=== PATIENT | male | born 1940 | race Caucasian/White ===

== ENCOUNTER 2019-02-06 07:52 | Inpatient (IN) ==
--- NOTE | 2019-02-06 08:12 | Emergency Department Note ---
Disposition Clinical Impression: Lower gastrointestinal hemorrhage, Hematochezia Anemia Qualifiers: Anemia type: unspecified type Qualified Code(s): D64.9 - Anemia, unspecified Disposition: Admitted As Inpatient Condition: Undetermined Forms: ED Satisfaction Letter Time of Disposition: 09:20 GI Bleed HPI - General Chief complaint: ED GI Bleed Stated complaint: Blood in stool Time Seen by Provider: 02/06/19 07:58 Source: patient, EMS Mode of arrival: EMS Limitations: no limitations Nursing Notes Reviewed: Yes Vital Signs Reviewed: Yes - History of Present Illness HPI Narrative: 78-year-old male with history of GI bleeding over the course the past 3 weeks arrives to the emergency department with concern from nursing staff for GI bleed. The patient is been seen multiple times in multiple emergency departments for GI bleeding and had a colonoscopy roughly 7 days ago which dem onstrated diverticulosis with no other etiology for the GI bleed. The patient is in no acute distress and denies any other complaints at this time. The patient was apparently sent here by nursing staff rather than physician for evaluation. I spoke to Dr. arriaga who is a physician chyron operator who stated that in less the patient was hypotensive the patient was not supposed to be sent to the emergency department unless requested. The patient denies any requesting denies any complaints at this time. We will obtain screening labs to include hemoglobin and platelets to determine if the patient is anemic and a BMP to determine if the patient has any acute kidney injury. Pelvis is negative, the patient will be sent back to nursing facility in conjunction with conversation with on-call physician from nursing facility. No further questions or concerns noted this time. Patient denies any complaints. He is in no acute distress. In route to the hospital patient given strict no tachycardia or hypotension. Same thing as reflected vital signs here at [facility] [place] emergency department. No further questions or concerns noted this time. - Related Data Allergies Allergy/AdvReac Type Severity Reaction Status Date / Time tramadol AdvReac Difficulty Verified 02/06/19 07:57 Breathing All systems ED: reviewed and negative except as stated. Constitutional: Denies: fever, chills, weakness Cardiovascular: Denies: chest pain Respiratory: Denies: dyspnea Gastrointestinal: Reports: hematochezia. Denies: abdominal pain, nausea, vomiting, diarrhea, constipation, hematemesis, melena Genitourinary: Denies: urgency, dysuria Musculoskeletal: Denies: back pain Integumentary: Denies: rash Neurological: Denies: headache, confusion Past Medical History - Past Medical History Attestation: Yes The following information was validated with the patient. Source: patient, old records reviewed Medical history: Reports: arthritis, GERD, hyperlipidemia, hypertension, other Surgical history: Reports: non-contributory Psychiatric history: Reports: no psych history - Social History Smoking Status: Never smoker Smokeless Tobacco Status: No Alcohol use: Reports: none Drug use: Reports: none Physical Exam - General Limitations: no limitations General appearance: alert, in no apparent distress - Head Head exam: atraumatic, normocephalic, normal inspection - Eye Eye exam: Present: normal appearance, PERRL, EOMI - ENT ENT exam: normal exam, normal oropharynx, mucous membranes moist - Neck Neck exam: Present: normal inspection, full ROM, trachea midline - Chest Chest inspection: Present: normal inspection, symmetric chest wall rise - Respiratory Respiratory exam: Present: normal lung sounds bilaterally - Cardiovascular Cardiovascular exam: Present: regular rate, normal rhythm, normal heart sounds - Abdominal Exam Abdominal exam: Present: soft, Non-Tender. Absent: tenderness - Extremities Exam Extremities exam: Present: normal inspection, full ROM. Absent: tenderness, pedal edema - Neurological Exam Neurological exam: Present: alert, oriented X3, CN II-XII intact - Skin Skin exam: Present: warm, dry, intact, normal color Course Vital Signs Temperature 98.3 F 02/06/19 07:55 Pulse Rate 72 02/06/19 07:55 Respiratory Rate 16 02/06/19 07:55 Blood Pressure 115/70 02/06/19 07:55 O2 Sat by Pulse Oximetry 100 02/06/19 07:55 Temperature 98.3 F 02/06/19 07:55 Pulse Rate 79 02/06/19 09:18 Respiratory Rate 16 02/06/19 09:18 Blood Pressure 87/56 02/06/19 09:18 O2 Sat by Pulse Oximetry 100 02/06/19 09:18 Oxygen Delivery Oxygen Delivery Room Air GI Bleed - [facility] Narrative Medical decision making narrative: Patient's evaluation in the emergency department demonstrates findings consistent with a GI bleed with anemia. Hemoglobin 6.2. Type and screen were obtained and we will transfuse 2 units of blood. Patient will be admitted to the hospital for further workup and care. We will have a discussion with on- call endoscopy. The patient is in no acute distress was stable vital signs. Patient's on-call physician from nursing facility made aware. Patient made aware and agrees to plan. Accepted to the hospitalist by Dr. Guillen - Lab Data Lab results reviewed: Yes I reviewed the patient's lab results. Result diagrams: 02/06/19 08:12 02/06/19 08:12 Lab Results 02/06/19 02/06/19 Range/Units 08:12 08:12 Hgb 6.2 L (12.9-16.9) g/dL Hct 21.0 L (37.5-50.1) % Plt Count 232 (140-400) K/mcL Sodium 139 (136-145) mEq/L Potassium 4.5 (3.5-5.1) mEq/L Chloride 109 H (98-107) mEq/L Carbon Dioxide 21 L (23-29) mEq/L BUN 13 (8-23) mg/dL Creatinine 0.79 (0.70-1.30) mg/dL Est GFR ( Amer) > 60 (> 60) Est GFR (Non-Af Amer) > 60 (> 60) BUN/Creatinine Ratio 16 (6-26) Glucose 86 (70-105) mg/dL Calculated Osmolality 287 (280-300) Calcium 8.3 L (8.6-10.3) mg/dL
[2019-02-06 08:23] LABS: Hemoglobin 6.2 g/dL (12.9-16.9)
[2019-02-06 08:43] LABS: BUN/Creatinine Ratio 16 (6-26); Blood Urea Nitrogen 13 mg/dL (8-23); Calcium 8.3 mg/dL (8.6-10.3); Carbon Dioxide 21 mEq/L (23-29); Chloride 109 mEq/L (98-107); Glucose 86 mg/dL (70-105); Osmolality,Calculated 287 (280-300); Potassium 4.5 mEq/L (3.5-5.1); Sodium 139 mEq/L (136-145); eGFR For Non-African Americans > 60 (> 60)
[2019-02-06] MEDS ORDERED: 0.9 % Sodium Chloride 1,000 ML IVC ONE (09:18)
--- NOTE | 2019-02-06 09:53 | Emergency Department Note ---
Disposition Clinical Impression: Lower gastrointestinal hemorrhage, Hematochezia Anemia Qualifiers: Anemia type: unspecified type Qualified Code(s): D64.9 - Anemia, unspecified Disposition: Admitted As Inpatient Condition: Undetermined Referrals: Ludy Colmenares DO [Primary Care Provider] - Forms: ED Satisfaction Letter General Adult HPI - General Chief complaint: ED GI Bleed Stated complaint: Blood in stool Time Seen by Provider: 02/06/19 07:58 Source: patient, EMS Mode of arrival: EMS Limitations: no limitations - History of Present Illness Pain Scale: 0 - Related Data Allergies Allergy/AdvReac Type Severity Reaction Status Date / Time tramadol AdvReac Difficulty Verified 02/06/19 07:57 Breathing Constitutional: Denies: fever, chills, weakness Cardiovascular: Denies: chest pain Respiratory: Denies: dyspnea Gastrointestinal: Reports: hematochezia. Denies: abdominal pain, nausea, vomiting, diarrhea, constipation, hematemesis, melena Genitourinary: Denies: urgency, dysuria Musculoskeletal: Denies: back pain Integumentary: Denies: rash Neurological: Denies: headache, confusion Past Medical History - Past Medical History Medical history: Reports: arthritis, GERD, hyperlipidemia, hypertension, other Surgical history: Reports: non-contributory Psychiatric history: Reports: no psych history - Social History Smoking Status: Never smoker Smokeless Tobacco Status: No Alcohol use: Reports: none Drug use: Reports: none Physical Exam - General Limitations: no limitations General appearance: alert, in no apparent distress Course Vital Signs Temperature 98.3 F 02/06/19 07:55 Pulse Rate 72 02/06/19 07:55 Respiratory Rate 16 02/06/19 07:55 Blood Pressure 115/70 02/06/19 07:55 O2 Sat by Pulse Oximetry 100 02/06/19 07:55 Temperature 98.3 F 02/06/19 07:55 Pulse Rate 75 02/06/19 09:44 Respiratory Rate 20 02/06/19 09:44 Blood Pressure 78/41 02/06/19 09:44 O2 Sat by Pulse Oximetry 100 02/06/19 09:44 Oxygen Delivery Oxygen Delivery Room Air Medical Decision Making - Lab Data Result diagrams: 02/06/19 08:12 02/06/19 08:12 Lab Results 03/21/19 03/21/19 03/21/19 Range/Units 08:12 08:12 08:44 Hgb 6.2 L (12.9-16.9) g/dL Hct 21.0 L (37.5-50.1) % Plt Count 232 (140-400) K/mcL Sodium 139 (136-145) mEq/L Potassium 4.5 (3.5-5.1) mEq/L Chloride 109 H (98-107) mEq/L Carbon Dioxide 21 L (23-29) mEq/L BUN 13 (8-23) mg/dL Creatinine 0.79 (0.70-1.30) mg/dL Est GFR ( Amer) > 60 (> 60) Est GFR (Non-Af Amer) > 60 (> 60) BUN/Creatinine Ratio 16 (6-26) Glucose 86 (70-105) mg/dL Calculated Osmolality 287 (280-300) Calcium 8.3 L (8.6-10.3) mg/dL Blood Type O POSITIVE Attestation Statement - Attestation Attestation: I examined this patient and my medical decision-making was reviewed with the Resident Physician. I agree with the documented findings, disposition and treatment plan as described except to the extent set forth below. BP went from normal to low while in ED, but he has had no change in how he feels, no change in mentation. Fluids running, blood about to be started. Updating hospitalist, will make sure GI is aware.
[2019-02-06] MEDS ORDERED: 0.9 % Sodium Chloride 250 ML ONE (09:59)
--- NOTE | 2019-02-06 11:51 | Pulmonology History & Physical ---
<Patricia Carney M - Last Filed: 02/06/19 16:14> Date of Encounter: 02/06/19 History of Present Illness HPI: Mr. Jauregui is a 78 year old male Medications and Allergies Acetaminophen [Tylenol] 650 mg PO BID 02/06/19 [History] Acetaminophen w/Cod 300-30 mg [Tylenol w/Codeine #3] 1 each PO Q6H PRN 02/06/19 [History] Ascorbate Calcium [Vitamin C] 500 mg PO DAILY 02/06/19 [History] Aspirin [Lo-Dose Aspirin EC] 81 mg PO DAILY 02/06/19 [History] Bisacodyl [Dulcolax] 5 mg PO DAILY PRN 02/06/19 [History] Carbidopa/Levodopa 25/100 [Sinemet 25/100] 2 each PO 5XD 02/06/19 [History] Chlorhexidine Gluconate [Peridex] 15 ml MM BID 02/06/19 [History] Docusate [Colace] 200 mg PO DAILY 02/06/19 [History] Ferrous Sulfate [Iron] 325 mg PO DAILY 02/06/19 [History] Gabapentin [Neurontin] 100 mg PO BID 02/06/19 [History] Loratadine [Claritin] 10 mg PO DAILY PRN 02/06/19 [History] Menthol [Biofreeze] 1 appl TP Q8H PRN 02/06/19 [History] Nystatin POWDER [Nystop] 1 appl TP BID 02/06/19 [History] Ondansetron HCl [Zofran] 4 mg PO Q6H PRN 02/06/19 [History] Pantoprazole Sodium [Protonix] 40 mg PO DAILY 02/06/19 [History] Polyethylene Glycol 3350 [MiraLAX] 17 gm PO HS 02/06/19 [History] Vitamin B Complex [Balanced B-50] 1 each PO DAILY 02/06/19 [History] Allergy/AdvReac Type Severity Reaction Status Date / Time tramadol AdvReac Difficulty Verified 02/06/19 07:57 Breathing All Systems: The remainder of the systems were reviewed and are negative Physical Examination Vital Signs: Vital Signs, Last 4 Hours Temp Pulse Resp BP Pulse Ox 02/06/19 16:00 67 13 127/64 99 02/06/19 15:54 98.2 F 73 16 144/65 99 03/21/19 15:00 98.2 F 82 20 144/65 95 02/06/19 14:14 69 11 122/70 99 02/06/19 13:16 76 12 107/60 100 02/06/19 13:15 98.3 F 66 15 107/60 100 02/06/19 13:00 98.2 F 69 14 93/60 100 02/06/19 12:42 73 14 90/59 100 Results - Laboratory Findings CBC and BMP: 02/06/19 08:12 02/06/19 08:12 Abnormal lab findings: Abnormal lab results Hgb 6.2 g/dL (12.9-16.9) L 02/06/19 08:12 Hct 21.0 % (37.5-50.1) L 02/06/19 08:12 Chloride 109 mEq/L (98-107) H 02/06/19 08:12 Carbon Dioxide 21 mEq/L (23-29) L 02/06/19 08:12 Calcium 8.3 mg/dL (8.6-10.3) L 02/06/19 08:12 - Attending Attestation I examined this patient and my medical decision-making was reviewed with the Resident Physician. I agree with the documented findings, disposition and treatment plan as described except to the extent set forth below. Patient seen and examined. I was called by the emergency room physician to evaluate this patient and patient was seen and examined in the emergency room as well as in the ICU. Labs, radiology, chart personally reviewed. Agree with resident's history and physical, assessment, plan with following co mments: CHARACTER ARTIST: Patient follows commands, Pulmonary: Acceptable oxygenation and ventilation Cardiovascular: Relatively hypotensive, however he is alert and oriented and is no evidence of any poor perfusion. I feel with blood transfusion this is will get better. GI: Nutrition per dietary and GI prophylaxis per routine. Patient was recently treated for the same problem and he will be on PPI and he may need octreotide as well. Patient stated colonoscopy was done in [place] and they were not able to reach to the area of bleeding. Elevator Pilot has been consulted. Patient will be admitted to ICU for close monitoring and frequent checking: His H&H. Because of his age and colon cancer would be in the differential diagnosis will need to have CT abdomen and pelvis. Heme: DVT prophylaxis per routine ID: There is no evidence of infections. Renal; urine out put and renal funtion reviewed Endorcine: blood glucose is monitored Lines: all lines checked and no evidence of infections Skin: skin care to prevent pressure ulcers per nursing routine care <Brandy Blancas - Last Filed: 02/06/19 16:51> Date of Encounter: 02/06/19 Time of Encounter: 11:48 Assessment and Plan (1) Lower gastrointestinal hemorrhage Current visit: Yes Status: Acute * Had large volume hematochezia in the emergency room * Has gotten 2 units packed red blood cells for anemia with hemoglobin of 6.2, will recheck CBC approximately 2 hours following transfusion to determine response * Dr. Anderson, nursery worker to evaluate the patient, plans to perform colonoscopy this afternoon if available * Will obtain records given that the patient has had recent colonoscopy * CT abdomen shows distended rectum but no evidence of obvious mass, bowel ischemia or obstruction * NPO for planned procedure, can advance diet as tolerated following procedure * [id number], patient's PoA will bring papers for verification (2) Anemia Current visit: Yes Status: Acute * On presentation hemoglobin 6.2 * Will obtain records from prior hospitalizations to determine baseline * Repeat H&H this afternoon Qualifiers: Anemia type: other cause Other causes of anemia: acute posthemorrhagic Qualified Code(s): D62 - Acute posthemorrhagic anemia (3) Parkinsons disease Current visit: Yes Status: Chronic * Baseline tremor * Will request records from home nursing facility to determine patient's medications (4) Hypertension Current visit: Yes Status: Chronic * Home medications pending given the patient's acute blood loss and borderline hypotension Qualifiers: Hypertension type: essential hypertension Qualified Code(s): I10 - Essen tial (primary) hypertension History of Present Illness Chief complaint: Hematochezia HPI: Mr. Jauregui is a 78 year old male with history of Parkinson's, hypertension who presents the emergency department on 02/06/19 due to hematochezia. He has been dealing with GI bleed for approximately 2 weeks and has been seen at both [facility] and [place] for this problem. He states that he underwent colonoscopy at [place] approximately one week ago but even after discharge he had a small amount of blood from his rectum. Today he was being checked by the nurses at his nursing facility and was found to have large volume bright red bloody bowel movement. He denies any current dizziness, lightheadedness, chest pain, shortness of breath, visual changes, nausea, vomiting, hematemesis, hemoptysis, hematuria, abdominal pain but does note increased fatigue and weakness in his legs. He is typically able to perform his own activities of daily living but since his bleeding started he has required more assistance at home. While in the emergency department the patient also had an episode of large- volume hematochezia. The patient was an initially normotensive but he came intermittently hypotensive with a lowest reading recorded at 78/41. He received 1 L fluid bolus as well as 2 unit packed red blood cells, the first of which is currently infusing upon my evaluation. Past Med Surg Social Fam HX - Past Medical History Medical history: arthritis, GERD, hyperlipidemia, hypertension, other Additional medical history: diverticulosis, parkinson's, aflutter, Psychiatric history: no psych history - Past Surgical History Surgical History: non-contributory Additional surgical history: bicept tendon R arm, eye sx - Social History Smoking Status: Never smoker Smokeless Tobacco Status: No Alcohol use: none Drug use: none All Systems: The remainder of the systems were reviewed and are negative - Constitutional Constitutional: as per HPI, fatigue - EENT Eyes: as per HPI - Cardiovascular Cardiovascular: as per HPI, no chest pain, no edema - Respiratory Respiratory: as per HPI, no dyspnea, no hemoptysis - Gastrointestinal Gastrointestinal: as per HPI, hematochezia, no abdominal pain, no cramping, no nausea - Genitourinary Genitourinary: as per HPI, no dysuria, no hematuria - Musculoskeletal Musculoskeletal: weakness - Integumentary Integumentary: no rash - Neurological Neurological: as per HPI, abnormal movements (Long-standing, due to Parkinson's) - Endocrine Endocrine: fatigue Physical Examination Vital Signs: Vital Signs, Last 4 Hours Temp Pulse Resp BP Pulse Ox 02/06/19 11:34 69 16 120/63 100 02/06/19 11:10 69 12 98/58 100 02/06/19 10:23 97.5 F L 64 14 93/47 02/06/19 10:20 65 14 106/59 100 02/06/19 10:09 97.6 F 68 12 102/58 02/06/19 09:44 75 20 78/41 100 02/06/19 09:18 79 16 87/56 100 02/06/19 07:55 98.3 F 72 16 115/70 100 General appearance: no acute distress, alert Eyes: nonicteric ENT: oropharynx moist, other (pallor) Neck: supple Effort: normal Inspection: normal Auscultation: bilateral: clear Cardiovascular: regular rate and rhythm Gastrointestinal: normoactive bowel sounds, non-tender, non-distended Integumentary: other (Bruising to bilateral hands, overall pallorous) Extremities: no cyanosis, pink and warm, pulses normal, no ischemia or petechiae Musculoskeletal: no deformities normal mental status, non-focal exam, pupils equal and round mood appropriate, affect normal Results - Laboratory Findings CBC and BMP: 02/06/19 08:12 02/06/19 08:12 Abnormal lab findings: Abnormal lab results Hgb 6.2 g/dL (12.9-16.9) L 02/06/19 08:12 Hct 21.0 % (37.5-50.1) L 02/06/19 08:12 Chloride 109 mEq/L (98-107) H 02/06/19 08:12 Carbon Dioxide 21 mEq/L (23-29) L 02/06/19 08:12 Calcium 8.3 mg/dL (8.6-10.3) L 02/06/19 08:12
[2019-02-06] MEDS ORDERED: Naloxone 0.4 MG/ML INJ IVP PRN (12:06)
[2019-02-06] MEDS ORDERED: Isovue-370 500 ML BOTTLE IVP ONE (14:07)
[2019-02-06] MEDS ORDERED: *HR* Midazolam HCl 2 MG/2 ML VIAL ONE ×2 (17:17→17:25)
[2019-02-06] MEDS ORDERED: *HR* FentaNYL (PF) 100 MCG/2 ML VIAL ONE (17:17)
[2019-02-06] MEDS ORDERED: *HR* FentaNYL (PF) 100 MCG/2 ML VIAL IVP ONE (17:18)
[2019-02-06] MEDS ORDERED: *HR* Midazolam HCl 5 MG/5 ML VIAL IVP ONE (17:18)
[2019-02-06] MEDS ORDERED: Tetracaine/Benzocaine/Butamben 1 SPRAY AEROSOL MM ONE (17:18)
[2019-02-06 17:31] LABS: Basophils % 0.6 %; Eosinophils # 0.1 K/mcL (0.0-0.6); Eosinophils % 1.6 %; Hematocrit 25.4 % (37.5-50.1); Immature Granulocytes % 0.5 % (0-4); Lymphocytes # 1.5 K/mcL (0.6-4.6); Lymphocytes % 23.9 %; Mean Corpuscular HGB Conc 31.1 g/dL (31.6-35.5); Mean Corpuscular Hemoglobin 27.1 pg (28.0-33.3); Mean Corpuscular Volume 87.3 fL (83.0-100.0); Mean Platelet Volume 10.6 fL (9.4-12.4); Monocytes # 0.7 K/mcL (0.0-1.3); Monocytes % 10.1 %; Neutrophils # 4.1 K/mcL (1.6-8.9); Platelet Count 235 K/mcL (140-400); Red Blood Count 2.91 M/mcL (4.19-5.50); Red Cell Distribution Width 17.2 % (11.5-14.5); Segmented Neutrophils % 63.3 %
[2019-02-06 17:37] LABS: Hemoglobin 7.9 g/dL (12.9-16.9)
[2019-02-06] MEDS: Pantoprazole 40 MG VIAL IVP SCH (17:39)
[2019-02-06 22:11] LABS: Basophils % 0.6 %; Eosinophils # 0.1 K/mcL (0.0-0.6); Eosinophils % 0.9 %; Hematocrit 23.2 % (37.5-50.1); Hemoglobin 7.5 g/dL (12.9-16.9); Immature Granulocytes % 0.4 % (0-4); Lymphocytes # 1.6 K/mcL (0.6-4.6); Lymphocytes % 22.7 %; Mean Corpuscular HGB Conc 32.3 g/dL (31.6-35.5); Mean Corpuscular Hemoglobin 28.2 pg (28.0-33.3); Mean Corpuscular Volume 87.2 fL (83.0-100.0); Mean Platelet Volume 10.6 fL (9.4-12.4); Monocytes # 0.6 K/mcL (0.0-1.3); Monocytes % 9.1 %; Neutrophils # 4.6 K/mcL (1.6-8.9); Platelet Count 248 K/mcL (140-400); Red Blood Count 2.66 M/mcL (4.19-5.50); Red Cell Distribution Width 17.3 % (11.5-14.5); Segmented Neutrophils % 66.3 %
[2019-02-07] MEDS: Pantoprazole 40 MG VIAL IVP SCH ×2 (06:10→17:41)
--- NOTE | 2019-02-07 07:32 | Pulmonology Progress Note ---
<Patricia Carney - Last Filed: 02/07/19 15:30> Date of Encounter: 02/07/19 Objective PUL Vital signs: Last Vital Signs Temp 98.0 F 02/07/19 07:50 Pulse 70 02/07/19 09:00 Resp 18 02/07/19 09:00 BP 140/95 02/07/19 09:00 Pulse Ox 98 02/07/19 09:00 Results - Laboratory Findings CBC and BMP: 02/07/19 09:26 02/06/19 08:12 Abnormal lab findings: Abnormal lab results RBC 2.71 M/mcL (4.19-5.50) L 02/07/19 09:26 Hgb 7.3 g/dL (12.9-16.9) L 02/07/19 09:26 Hct 23.4 % (37.5-50.1) L 02/07/19 09:26 MCH 26.9 pg (28.0-33.3) L 02/07/19 09:26 MCHC 31.2 g/dL (31.6-35.5) L 02/07/19 09:26 RDW 17.4 % (11.5-14.5) H 02/07/19 09:26 Chloride 109 mEq/L (98-107) H 02/06/19 08:12 Carbon Dioxide 21 mEq/L (23-29) L 02/06/19 08:12 Calcium 8.3 mg/dL (8.6-10.3) L 02/06/19 08:12 - Clinical Findings Intake & Output: Intake & Output 02/06/19 02/07/19 02/07/19 23:59 07:59 15:59 Intake Total 250 / 250 Output Total 100 / 100 150 / 150 Balance 150 / 150 -150 / -150 Weight 89.8 kg Consult Discharge Plan - Plan Referrals: Ludy Colmenares DO [Primary Care Provider] - - Attending Attestation I examined this patient and my medical decision-making was reviewed with the Resident Physician. I agree with the documented findings, disposition and treatment plan as described except to the extent set forth below. Patient seen and examined. Labs, radiology, chart personally reviewed. 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 GI: Nutrition per dietary and GI prophylaxis per routine. Patient will have evaluation by GI for the source of the bleeding. Discussed with the GI service. Heme: DVT prophylaxis per routine patient hemoglobin is relatively stable and no need for transfusion at this time ID: Continue antibiotics and plan to de-escalation Renal; urine out put and renal funtion reviewed Endorcine: blood glucose is monitored Lines: all lines checked and no evidence of infections Skin: skin care to prevent pressure ulcers per nursing routine care Patient will be signed off to the hospitalist. <Toby Chang P - Last Filed: 02/07/19 19:02> Date of Encounter: 02/07/19 Time of Encounter: 10:00 Assessment and Plan (1) Lower gastrointestinal hemorrhage Current Visit: Yes Status: Acute The patient was presented for last bloody bowel movement, he also had blood any stool in emergency room Diagnostic Cardiac Sonographer evaluated him and plan for UGI endoscopy and colonoscopy UGI endoscopy showed; small non-bleeding gastric ulcer in the pre- pyloric region of stomach Colonoscopy has been awaited, has been planned today He got 2 units of packed red blood cell and initial hemoglobin 6.[address] abdomen did not show any obvious acute pathology including bowel ischemia or obstruction (2) Acute blood loss anemia Current Visit: Yes Status: Acute Patient hemoglobin is 6.2 while he presented to ED After pus was in of 2 unit of packed cell and only went up to 7.5, now it is 7.2 Anemia might be because of acute blood loss Colonoscopy has been planned today to figure out any he did not begin point. We will closely monitor his hemoglobin level. (3) Parkinsons disease Current Visit: Yes Status: Chronic He is a patient of Parkinson disease Has resting tremor We will confirm his antiparkinson medication from nursing facility and will resume them. (4) Hypertension Current Visit: Yes Status: Chronic Patient is chronic patient of essential hypertension under medication Anti HTN medication is on hold the cause of acute blood loss and hypotension We will resume later Qualifiers: Hypertension type: essential hypertension Qualified Code(s): I10 - Essential (primary) hypertension (5) Mechanical deep vein thrombosis (DVT) prophylaxis in place Current Visit: Yes Status: Acute Because of bleeding, he is on mechanical DVT prophylaxis. Subjective Principal diagnosis: GI bleeding , Low Hb Interval history: Mr. Jauregui is a 78 year old male with history of Parkinson's, hypertension who presents the emergency department on 02/06/19 due to hematochezia. He has been dealing with GI bleed for approximately 2 weeks and has been seen at both [facility] and [facility] for this problem. He states that he underwent colonoscopy at [facility] approximately one week ago but even after discharge he had a small amount of blood from his rectum. he was being checked by the nurses at his [facility] facility and was found to have large volume bright red bloody bowel movement. So he was transferred to [place] emergency and admitted to ICU because he was hemodynamically stable on stable. Today during my bedside visit the patient was sitting on the bed, well oriented to time place and person, no any history of bloody bowel movement since yesterday, vital signs stable, blood pressure 146/65, saturation 98% in room air, pulse 70, temperature 98 F. his hemoglobin was 6.2 at the beginning and a fter blood transfusion Hb went up now it is 7.3. The patient is comfortable and stable, just waiting for colonoscopy today. UGI endoscopy done yesterday showed small pre-pyloric nonbleeding gastric ulcer. I talked with hospitalist/ admitter and he will be transferred to stepdown unit and a half already put transfer order for any Tele bed. Objective PUL Vital signs: Last Vital Signs Temp 98.4 F 02/07/19 04:00 Pulse 70 02/07/19 06:00 Resp 18 02/07/19 06:00 BP 158/84 02/07/19 06:00 Pulse Ox 98 02/07/19 06:00 General appearance: no acute distress Eyes: nonicteric ENT: oropharynx moist Neck: supple, no lymphadenopathy Effort: normal Cardiovascular: regular rate and rhythm Gastrointestinal: normoactive bowel sounds, soft, non-tender, non-distended Extremities: no edema Musculoskeletal: no deformities normal mental status, non-focal exam, pupils equal and round, CN II-XII normal mood appropriate, affect normal Results - Laboratory Findings CBC and BMP: 02/07/19 09:26 02/06/19 08:12 Abnormal lab findings: Abnormal lab results RBC 2.66 M/mcL (4.19-5.50) L 02/06/19 22:00 Hgb 7.5 g/dL (12.9-16.9) L 02/06/19 22:00 Hct 23.2 % (37.5-50.1) L 02/06/19 22:00 RDW 17.3 % (11.5-14.5) H 02/06/19 22:00 Chloride 109 mEq/L (98-107) H 02/06/19 08:12 Carbon Dioxide 21 mEq/L (23-29) L 02/06/19 08:12 Calcium 8.3 mg/dL (8.6-10.3) L 02/06/19 08:12 - Clinical Findings Intake & Output: Intake & Output 02/06/19 02/06/19 02/07/19 15:59 23:59 07:59 Intake Total 1700 / 1700 250 / 250 Output Total 100 / 100 100 / 100 150 / 150 Balance 1600 / 1600 150 / 150 -150 / -150 Weight 90 kg 89.8 kg
--- NOTE | 2019-02-07 09:06 | Anesthesia Evaluation PreOp ---
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) Other Medical History: GERD, Other (GI bleed, arthritis) Anesthesia History: No Prior Anesthetic Complications, Past Anesthesia Alcohol Use: none Drug use: none Medications and Allergies Acetaminophen [Tylenol] 650 mg PO BID 02/06/19 [History] Acetaminophen w/Cod 300-30 mg [Tylenol w/Codeine #3] 1 each PO Q6H PRN 02/06/19 [History] Ascorbate Calcium [Vitamin C] 500 mg PO DAILY 02/06/19 [History] Aspirin [Lo-Dose Aspirin EC] 81 mg PO DAILY 02/06/19 [History] Bisacodyl [Dulcolax] 5 mg PO DAILY PRN 02/06/19 [History] Carbidopa/Levodopa 25/100 [Sinemet 25/100] 2 each PO 5XD 02/06/19 [History] Chlorhexidine Gluconate [Peridex] 15 ml MM BID 02/06/19 [History] Docusate [Colace] 200 mg PO DAILY 02/06/19 [History] Ferrous Sulfate [Iron] 325 mg PO DAILY 02/06/19 [History] Gabapentin [Neurontin] 100 mg PO BID 02/06/19 [History] Loratadine [Claritin] 10 mg PO DAILY PRN 02/06/19 [History] Menthol [Biofreeze] 1 appl TP Q8H PRN 02/06/19 [History] Nystatin POWDER [Nystop] 1 appl TP BID 02/06/19 [History] Ondansetron HCl [Zofran] 4 mg PO Q6H PRN 02/06/19 [History] Pantoprazole Sodium [Protonix] 40 mg PO DAILY 02/06/19 [History] Polyethylene Glycol 3350 [MiraLAX] 17 gm PO HS 02/06/19 [History] Vitamin B Complex [Balanced B-50] 1 each PO DAILY 02/06/19 [History] Allergy/AdvReac Type Severity Reaction Status Date / Time tramadol AdvReac Difficulty Verified 02/06/19 07:57 Breathing - Meds/Allergy Pre-op Review Medications Reviewed: Yes Allergies Reviewed: Yes Beta Blockers on Current Med List: No Anesthesia Results - Labs 02/06/19 22:00 02/06/19 08:12 - Imaging EKG: pending Anesthesia Exam Vital Signs/O2 Sat/Glucose, Most Recent Temp Pulse Resp BP Pulse Ox 98.0 F 70 18 140/95 98 02/07/19 07:50 02/07/19 09:00 02/07/19 09:00 02/07/19 09:00 02/07/19 09:00 Blood Glucose* 89 Weight: 89 kg NPO (# of Hours): > 8 hr - HEENT Pupil (Motor): Pupils equal Mallampati: II Teeth: Edentulous - 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
[2019-02-07 09:37] LABS: Basophils % 0.5 %; Eosinophils # 0.1 K/mcL (0.0-0.6); Eosinophils % 1.3 %; Hematocrit 23.4 % (37.5-50.1); Hemoglobin 7.3 g/dL (12.9-16.9); Immature Granulocytes % 0.3 % (0-4); Lymphocytes # 1.3 K/mcL (0.6-4.6); Lymphocytes % 21.2 %; Mean Corpuscular HGB Conc 31.2 g/dL (31.6-35.5); Mean Corpuscular Hemoglobin 26.9 pg (28.0-33.3); Mean Corpuscular Volume 86.3 fL (83.0-100.0); Mean Platelet Volume 10.6 fL (9.4-12.4); Monocytes # 0.6 K/mcL (0.0-1.3); Monocytes % 8.7 %; Neutrophils # 4.3 K/mcL (1.6-8.9); Platelet Count 256 K/mcL (140-400); Red Blood Count 2.71 M/mcL (4.19-5.50); Red Cell Distribution Width 17.4 % (11.5-14.5)
--- NOTE | 2019-02-07 11:51 | Gastroenterology Consult Note ---
<Heath Molina - Last Filed: 02/07/19 11:47> Date of Encounter: 02/07/19 Time of Encounter: 10:00 - Assessment and plan (1) Anemia Current Visit: Yes Status: Acute Assessment and plan: Hgb 6.2 on admission, after 2 units PRBC Hgb 7.9, and this AM Hgb 7.3. Continue to monitor CBC and transfuse PRBC as needed. EGD completed yesterday by Dr. Anderson showed small hiatal hernia, nonbleeding gastric ulcer, gastric mucosal atrophy. Plan for colonoscopy today, keep patient NPO. Qualifiers: Anemia type: other cause Other causes of anemia: acute posthemorrhagic Qualified Code(s): D62 - Acute posthemorrhagic anemia (2) Lower gastrointestinal hemorrhage Current Visit: Yes Status: Acute Assessment and plan: EGD completed yesterday by Dr. Anderson showed small hiatal hernia, nonbleeding gastric ulcer, gastric mucosal atrophy. Plan for colonoscopy today, keep patient NPO. (3) Gastric ulcer Current Visit: Yes Status: Acute Assessment and plan: Noted on EGD. Start Carafate and continue PPI. Qualifiers: Gastric ulcer chronicity: unspecified ulcer chronicity Gastric ulcer complication status: without hemorrhage or perforation Qualified Code(s): K25.9 - Gastric ulcer, unspecified as acute or chronic, without hemorrhage or perforation - Time Spent With Patient Total time spent is greater than 50% in coordination of care (as documented) at patient's floor/unit and/or counseling patient: GI History of Present Illness - Data of Consult Patient: new to practice Consult date: 02/07/19 Requesting Physician: Patricia Carney MD - Consult Narrative Reason for consult: Acute GI bleed History of present illness: Mr. Jauregui is a 78 year old male with PMHx of arthritis, GERD, HLD, HTN, Parkinson's who presented to the ED 02/06 with hematochezia that has been ongoing for the past 2 weeks. He has been seen at [facility] for this problem. He states that he underwent colonoscopy at [facility] approximately one week ago but even after discharge he had a small amount of blood from his rectum. He was being checked by the nurses at his nursing facility and was found to have large volume bright red bloody bowel movement. He had another large volume episode of hematochezia while in the ED. He became hypotensive with BP 78/41 and Hgb 6.2. After 2 units PRBC Hgb 7.9, and this AM Hgb 7.3. He denies any fever, chills, chest pain, shortness of breath, nausea, vomiting, hematemesis, abdominal pain, or melena. EGD completed yesterday by Dr. Anderson showed small hiatal hernia, nonbleeding gastric ulcer, gastric mucosal atrophy. Procedures: Colonoscopy one week ago at [facility]. NSAIDs: ASA Anticoagulation: None Past Med Surg Social Fam HX - Past Medical History Medical history: arthritis, GERD, hyperlipidemia, hypertension, other Additional medical history: diverticulosis, parkinson's, aflutter, Psychiatric history: no psych history - Past Surgical History Surgical History: non-contributory Additional surgical history: bicept tendon R arm, eye sx - Social History Smoking Status: Never smoker Smokeless Tobacco Status: No Alcohol use: none Drug use: none - Gastrointestinal Gastrointestinal: Present: as per HPI - Constitutional Constitutional: as per HPI - EENT Eyes: as per HPI Ears: Present: as per HPI Nose, mouth and throat: Present: as per HPI - Cardiovascular Cardiovascular ROS: Present: as per HPI - Respiratory Respiratory IM: Present: as per HPI - Genitourinary Genitourinary: Absent: change in color, Urinary frequency - Neurological ROS Neurological GI: Present: as per HPI - Hematologic/Lymphatic Hematologic/Lymphatic pediatric: Present: as per HPI - Musculoskeletal Musculoskeletal ROS GI: Present: as per HPI - Integumentary Integumentary GI: Present: as per HPI - Psychiatric ROS Psychiatric GI: Present: as per HPI - Endocrine Endocrine IM: Present: as per HPI - Constitutional Vitals: Temp Pulse Resp BP Pulse Ox 98.0 F 70 18 146/65 98 02/07/19 07:50 02/07/19 10:00 02/07/19 10:00 02/07/19 10:00 02/07/19 10:00 General appearance: Present: cooperative, A&O X 3, no acute distress, answers questions appropriately - Head Head exam: Present: atraumatic, normocephalic - Eye Eye exam: Present: normal appearance, sclera anicteric - ENT ENT exam: Present: mucous membranes dry - Neck Neck exam general surgery: Present: normal inspection, trachea midline - Respiratory Respiratory exam: Present: decreased breath sounds, CTAB. Absent: rales, rhonchi, wheezes - Cardiovascular Cardiovascular exam: Present: RRR, +S1, +S2 - GI/Abdominal GI/Abdominal exam: Present: normal bowel sounds, soft, no peritoneal signs. Absent: distended, firm, guarding, tenderness - Rectal Rectal exam: Present: deferred - Extremities Exam Extremities exam: Present: warm - Neurological Exam Neurological exam: Present: no focal deficits - Psychiatric Psychiatric exam: Present: normal affect, normal mood - Skin Skin exam: Present: dry, intact, normal color, warm Results - Labs CBC & Chem 7: 02/07/19 09:26 02/06/19 08:12 Labs: Last Result Calcium 8.3 mg/dL (8.6-10.3) L 02/06/19 08:12 Entire Visit Hgb 7.3 g/dL (12.9-16.9) L 02/07/19 09:26 Hct 23.4 % (37.5-50.1) L 02/07/19 09:26 - Impressions Impressions Abdomen/Pelvis CT 02/06/19 14:07 IMPRESSION: 1. Heterogeneous attenuation of a distended rectum. This is suspected to represent a mixture of fluid and stool. Higher attenuation may correlate to provided history of hematochezia. Underlying etiology is not determined. 2. The proximal colon shows air-fluid levels with no evidence of obstruction, and no mucosal abnormality appreciated. Recommend correlation with colonoscopy history. 3. The stomach and small bowel are unremarkable. 4. Small pleural effusions with associated atelectasis in the lower chest. D/ / Julito Arnett MD / Julito Arnett MD Interpreting Provider: Julito Arnett MD Consult Discharge Plan - Plan Referrals: Ludy Colmenares DO [Primary Care Provider] - <Vandana Anderson - Last Filed: 02/07/19 13:34> Date of Encounter: 02/07/19 Time of Encounter: 08:00 - Time Spent With Patient Total time spent is greater than 50% in coordination of care (as documented) at patient's floor/unit and/or counseling patient: GI History of Present Illness - Data of Consult Requesting Physician: Patricia Carney MD - Consult Narrative History of present illness: Mr. Jauregui is a 78 year old male - Constitutional Vitals: Temp Pulse Resp BP Pulse Ox 98.2 F 74 16 151/68 98 02/07/19 11:30 02/07/19 12:00 02/07/19 12:00 02/07/19 12:00 02/07/19 12:00 Results - Labs CBC & Chem 7: 02/07/19 09:26 02/06/19 08:12 Labs: Last Result Calcium 8.3 mg/dL (8.6-10.3) L 02/06/19 08:12 Entire Visit Hgb 7.3 g/dL (12.9-16.9) L 02/07/19 09:26 Hct 23.4 % (37.5-50.1) L 02/07/19 09:26 - Impressions Impressions Abdomen/Pelvis CT 02/06/19 14:07 IMPRESSION: 1. Heterogeneous attenuation of a distended rectum. This is suspected to represent a mixture of fluid and stool. Higher attenuation may correlate to provided history of hematochezia. Underlying etiology is not determined. 2. The proximal colon shows air-fluid levels with no evidence of obstruction, and no mucosal abnormality appreciated. Recommend correlation with colonoscopy history. 3. The stomach and small bowel are unremarkable. 4. Small pleural effusions with associated atelectasis in the lower chest. D/ / Julito Arnett MD / Julito Arnett MD Interpreting Provider: Julito Arnett MD - Attending Attestation I have personally performed a face to face evaluation on this patient. I have reviewed and agree with the care plan. History and Exam by me shows: Patient seen. Denies any abdominal pain examination abdomen is soft. Assessment: Patient with multiple comorbidities no with recurrent lower GI bleeding. EGD yesterday was negative for any upper GI source. Recommendation colonoscopy today. will follow H&H transfuse as needed
--- NOTE | 2019-02-07 13:17 | Anesthesia Evaluation Post Op ---
Date of Encounter: 02/07/19 Time of Encounter: 13:16 - Vital Signs Vital Signs: Vital Signs/O2 Sat/Glucose, Most Recent Temp Pulse Resp BP Pulse Ox 98.2 F 74 16 151/68 98 02/07/19 11:30 02/07/19 12:00 02/07/19 12:00 02/07/19 12:00 02/07/19 12:00 Blood Glucose* 89 - Lungs Lungs: Clear Ascult./Percussion - Airway Airway: Non-obstructed - Cardiovascular Regular Rate - Mental Status Mental Status: Alert & Oriented, Answers Appropriately - Pain Pain Scale: 0 - Hydration Hydration: NPO - Discharge Attestation: patient to remain in ICU
[2019-02-07] MEDS ORDERED: Sucralfate 1 GM TABLET PO SCH (16:30)
--- NOTE | 2019-02-07 17:15 | Electrocardiograph Report ---
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
[2019-02-08] MEDS: Pantoprazole 40 MG VIAL IVP SCH ×2 (05:18→17:32)
[2019-02-08 06:46] LABS: Basophils % 0.5 %; Eosinophils # 0.1 K/mcL (0.0-0.6); Eosinophils % 1.8 %; Hematocrit 22.8 % (37.5-50.1); Immature Granulocytes % 0.5 % (0-4); Lymphocytes # 1.1 K/mcL (0.6-4.6); Lymphocytes % 19.9 %; Mean Corpuscular HGB Conc 30.7 g/dL (31.6-35.5); Mean Corpuscular Hemoglobin 27.2 pg (28.0-33.3); Mean Corpuscular Volume 88.7 fL (83.0-100.0); Mean Platelet Volume 10.8 fL (9.4-12.4); Monocytes # 0.5 K/mcL (0.0-1.3); Monocytes % 9.3 %; Neutrophils # 3.9 K/mcL (1.6-8.9); Platelet Count 300 K/mcL (140-400); Red Blood Count 2.57 M/mcL (4.19-5.50); Red Cell Distribution Width 17.3 % (11.5-14.5)
[2019-02-08] MEDS ORDERED: Naloxone 0.4 MG/ML INJ IVP PRN (07:02)
[2019-02-08] MEDS ORDERED: *HR* Acetaminophen w/Cod 300-30 mg 1 TAB TABLET PO PRN (08:05)
[2019-02-08] MEDS ORDERED: Loratadine 10 MG TABLET PO PRN (08:05)
[2019-02-08] MEDS ORDERED: Ondansetron ODT 4 MG TAB.RAPDIS PO PRN (08:05)
[2019-02-08] MEDS: Acetaminophen 325 MG TABLET PO SCH ×2 (09:54→20:51)
[2019-02-08] MEDS: Chlorhexidine Rinse 15 ML MOUTHWASH MM SCH ×2 (09:54→20:51)
[2019-02-08] MEDS: Aspirin Enteric Coated 81 MG Tablet PO SCH (09:55)
[2019-02-08] MEDS: Gabapentin 100 MG CAPSULE PO SCH ×2 (09:55→20:51)
[2019-02-08] MEDS: Nystatin POWDER 30 GM BOTTLE TP SCH ×2 (09:56→20:51)
--- NOTE | 2019-02-08 11:20 | Internal Med Progress Note ---
Hospitalist Progress Note - Encounter Date of Encounter: 02/08/19 Time of Encounter: 09:20 - Subjective Interval History: Patient lying down in bed. Easily to awake. Denies any new complaints at this time. No new episodes of lower GI bleed. Patient started on a clear liquid diet and is tolerating it so far. - Exam Vitals: Temp Pulse Resp BP Pulse Ox 98.1 F 84 14 103/62 98 02/08/19 10:23 02/08/19 10:02/08/19 10:02/08/19 10:02/08/19 10:23 Exam: General: Patient is alert, no acute distress, oriented x 3 ENT: Mucous membranes moist Respiratory: Good respiratory effort. Normal breath sounds. No wheezing or crackles. Cardiovascular: Regular rate and rhythm. s1 and s2 normal No clicks, rubs, gallops, or murmurs. Pedal edema present Abdomen: Abdomen is soft, nontender. Bowel sounds are present Musculoskeletal: Spontaneously moving all extremities Skin: warm, dry, intact. Pallor present Neuro: Alert oriented x 3 normal cranial nerves, no focal deficits - Assessment and Plan (1) Lower gastrointestinal hemorrhage Current Visit: Yes Status: Acute Assessment and Plan: Status post-EGD and colonoscopy which showed internal hemorrhoids but no signs of active bleeding. Nonbleeding gastric ulcer also noted. Continue PPI. Start patient on clear liquid diet. (2) Parkinsons disease Current Visit: Yes Status: Chronic Assessment and Plan: Continue Sinemet (3) Hypertension Current Visit: Yes Status: Chronic Assessment and Plan: Blood pressure elevated this morning. We will continue to monitor closely. Patient not on any antihypertensives at home. Will monitor closely and start medication if needed. (4) Acute blood loss anemia Current Visit: Yes Status: Acute Assessment and Plan: Hemoglobin levels remain stable since his last transfusion. We will continue to monitor closely. Acute anemia due to GI bleed. (5) Mechanical deep vein thrombosis (DVT) prophylaxis in place Current Visit: Yes Status: Acute Assessment and Plan: Continue SCDs - Time Spent with Patient Total time spent is greater than 50% in coordination of care (as documented) at patient's floor/unit and/or counseling patient: Internal Medicine: Result - Labs CBC & Chem 7: 02/08/19 05:50 02/06/19 08:12 Labs: Short CBC 02/08/19 Range/Units 05:50 WBC 5.7 (4.3-11.1) K/mcL Hgb 7.0 L (12.9-16.9) g/dL Hct 22.8 L (37.5-50.1) % Plt Count 300 (140-400) K/mcL Neutrophils # 3.9 (1.6-8.9) K/mcL Consult Discharge Plan - Plan Referrals: Ludy Colmenares, [Primary Care Provider] - (3) Hypertension Qualifiers: Hypertension type: essential hypertension Qualified Code(s): I10 - Essential (primary) hypertension
[2019-02-08] MEDS: Carbidopa/Levodopa 25/100 TABLET PO SCH ×3 (11:55→21:47)
[2019-02-08 12:15] LABS: Hematocrit 22.8 % (37.5-50.1); Hemoglobin 7.2 g/dL (12.9-16.9)
[2019-02-08 18:15] LABS: Hemoglobin 7.3 g/dL (12.9-16.9)
[2019-02-09] MEDS: Pantoprazole 40 MG VIAL IVP SCH ×2 (05:25→17:45)
[2019-02-09] MEDS: Carbidopa/Levodopa 25/100 TABLET PO SCH ×5 (05:25→20:01)
[2019-02-09 06:43] LABS: Basophils % 0.6 %; Eosinophils # 0.2 K/mcL (0.0-0.6); Eosinophils % 4.2 %; Hematocrit 21.8 % (37.5-50.1); Hemoglobin 6.6 g/dL (12.9-16.9); Immature Granulocytes % 0.4 % (0-4); Lymphocytes # 1.3 K/mcL (0.6-4.6); Mean Corpuscular HGB Conc 30.3 g/dL (31.6-35.5); Mean Corpuscular Volume 89.3 fL (83.0-100.0); Mean Platelet Volume 10.7 fL (9.4-12.4); Monocytes # 0.6 K/mcL (0.0-1.3); Monocytes % 11.2 %; Neutrophils # 2.9 K/mcL (1.6-8.9); Platelet Count 298 K/mcL (140-400); Red Blood Count 2.44 M/mcL (4.19-5.50); Red Cell Distribution Width 17.2 % (11.5-14.5); Segmented Neutrophils % 57.6 %
[2019-02-09 07:16] LABS: BUN/Creatinine Ratio 19 (6-26); Blood Urea Nitrogen 17 mg/dL (8-23); Calcium 8.1 mg/dL (8.6-10.3); Carbon Dioxide 23 mEq/L (23-29); Chloride 109 mEq/L (98-107); Glucose 88 mg/dL (70-105); Iron < 10 mcg/dL (65-175); Osmolality,Calculated 285 (280-300); Sodium 137 mEq/L (136-145); Transferrin 129 mg/dL (203-362); eGFR For Non-African Americans > 60 (> 60)
[2019-02-09 07:25] LABS: Ferritin 15 ng/mL (20-250); Folate 7.9 ng/mL (3.0-16.0)
[2019-02-09] MEDS: Aspirin Enteric Coated 81 MG Tablet PO SCH (07:58)
[2019-02-09] MEDS: Acetaminophen 325 MG TABLET PO SCH ×2 (07:58→20:00)
[2019-02-09] MEDS: Gabapentin 100 MG CAPSULE PO SCH ×2 (07:58→20:00)
[2019-02-09] MEDS: Chlorhexidine Rinse 15 ML MOUTHWASH MM SCH ×2 (07:58→20:01)
[2019-02-09] MEDS: Nystatin POWDER 30 GM BOTTLE TP SCH ×2 (08:00→20:01)
[2019-02-09] MEDS: Cyanocobalamin (B-12) 1,000 MCG/ML VIAL SQ SCH (11:17)
[2019-02-09] MEDS ORDERED: Bisacodyl 10 MG RECTAL SUPPOSITORY RC PRN (11:47)
--- NOTE | 2019-02-09 11:49 | Internal Med Progress Note ---
Hospitalist Progress Note - Encounter Date of Encounter: 02/09/19 Time of Encounter: 09:20 - Subjective Interval History: Patient is awake and alert. Lying down in bed. Reports that he is not had a bowel movement for the past couple of days.. He is tolerating diet well. No fevers or chills reported overnight. No hematemesis. - Exam Vitals: Temp Pulse Resp BP Pulse Ox 98.7 F 64 14 127/69 95 02/09/19 10:48 02/09/19 10:48 02/09/19 10:48 02/09/19 10:48 02/09/19 10:48 Exam: General: Patient is alert, no acute distress, oriented x 3 ENT: Mucous membranes are dry Respiratory: Decreased breath sounds at both bases. Normal breath sounds. No wheezing or crackles. Cardiovascular: Regular rate and rhythm. s1 and s2 normal No clicks, rubs, gallops, or murmurs. B/L pedal edema- ,mild Abdomen: Abdomen is soft, nontender. Bowel sounds are present Musculoskeletal: Spontaneously moving all extremities Skin: warm, dry, intact. Pallor present Neuro: Alert oriented x 3 normal cranial nerves, no focal deficits - Assessment and Plan (1) Acute blood loss anemia Current Visit: Yes Status: Acute Assessment and Plan: hemoglobin 6.6 today. Will transfuse 2 units PRBC. We will continue to monitor hemoglobin levels. If patient does have further GI bleeding, he will need a nuclear bleeding scan. For now he does have iron deficiency and B12 deficiency. We will replete with subcutaneous B12 shots and intravenous iron. (2) Lower gastrointestinal hemorrhage Current Visit: Yes Status: Acute Assessment and Plan: No new episodes of lower GI bleed. However her hemoglobin remains low. We will continue to monitor closely. Continue PPI. If hemoglobin levels continued to trend down, he will need a nuclear bleeding scan. (3) Parkinsons disease Current Visit: Yes Status: Chronic Assessment and Plan: Continue Sinemet (4) Hypertension Current Visit: Yes Status: Chronic Assessment and Plan: Blood pressure is fairly controlled for his age. No changes at this time. (5) Mechanical deep vein thrombosis (DVT) prophylaxis in place Current Visit: Yes Status: Acute - Time Spent with Patient Total time spent is greater than 50% in coordination of care (as documented) at patient's floor/unit and/or counseling patient: Internal Medicine: Result - Labs CBC & Chem 7: 02/09/19 06:08 02/09/19 06:08 Labs: Short CBC 02/08/19 02/08/19 02/09/19 Range/Units 11:24 17:57 06:08 WBC 5.0 (4.3-11.1) K/mcL Hgb 7.2 L 7.3 L 6.6 L (12.9-16.9) g/dL Hct 22.8 L 24.0 L 21.8 L (37.5-50.1) % Plt Count 298 (140-400) K/mcL Neutrophils # 2.9 (1.6-8.9) K/mcL BMP 02/09/19 06:08 Sodium 137 Potassium 4.0 Chloride 109 H Carbon Dioxide 23 BUN 17 Creatinine 0.91 Glucose 88 Calcium 8.1 L Consult Discharge Plan - Plan Referrals: Ludy Colmenares DO [Primary Care Provider] - (4) Hypertension Qualifiers: Hypertension type: essential hypertension Qualified Code(s): I10 - Essential (primary) hypertension
[2019-02-09] MEDS ORDERED: 0.9 % Sodium Chloride 250 ML ONE ×2 (12:07→15:30)
[2019-02-09] MEDS: Sodium Ferric Gluconat/Sucrose 250 MG in 0.9 % Sodium Chloride 100 ML IVPB SCH (15:40)
[2019-02-10] MEDS: Carbidopa/Levodopa 25/100 TABLET PO SCH ×4 (05:59→16:32)
[2019-02-10] MEDS: Pantoprazole 40 MG VIAL IVP SCH (05:59)
[2019-02-10 06:32] LABS: Basophils % 0.5 %; Eosinophils # 0.3 K/mcL (0.0-0.6); Hematocrit 29.2 % (37.5-50.1); Immature Granulocytes % 0.3 % (0-4); Lymphocytes % 15.6 %; Mean Corpuscular HGB Conc 30.8 g/dL (31.6-35.5); Mean Corpuscular Hemoglobin 26.4 pg (28.0-33.3); Mean Corpuscular Volume 85.6 fL (83.0-100.0); Mean Platelet Volume 10.9 fL (9.4-12.4); Monocytes # 0.6 K/mcL (0.0-1.3); Neutrophils # 4.3 K/mcL (1.6-8.9); Platelet Count 312 K/mcL (140-400); Red Blood Count 3.41 M/mcL (4.19-5.50); Red Cell Distribution Width 17.2 % (11.5-14.5); Segmented Neutrophils % 69.6 %
[2019-02-10 06:54] LABS: BUN/Creatinine Ratio 19 (6-26); Blood Urea Nitrogen 14 mg/dL (8-23); Calcium 8.3 mg/dL (8.6-10.3); Carbon Dioxide 23 mEq/L (23-29); Chloride 107 mEq/L (98-107); Glucose 72 mg/dL (70-105); Osmolality,Calculated 283 (280-300); Potassium 3.9 mEq/L (3.5-5.1); Sodium 137 mEq/L (136-145); eGFR For Non-African Americans > 60 (> 60)
[2019-02-10] MEDS: Acetaminophen 325 MG TABLET PO SCH (09:50)
[2019-02-10] MEDS: Chlorhexidine Rinse 15 ML MOUTHWASH MM SCH (09:50)
[2019-02-10] MEDS: Cyanocobalamin (B-12) 1,000 MCG/ML VIAL SQ SCH (09:50)
[2019-02-10] MEDS: Aspirin Enteric Coated 81 MG Tablet PO SCH (09:50)
[2019-02-10] MEDS: Gabapentin 100 MG CAPSULE PO SCH (09:51)
[2019-02-10] MEDS: Sodium Ferric Gluconat/Sucrose 250 MG in 0.9 % Sodium Chloride 100 ML IVPB SCH (09:51)
[2019-02-10 10:53] VITALS: BP 129/79
[2019-02-10] MEDS: Nystatin POWDER 30 GM BOTTLE TP SCH (11:38)
[2019-02-10 12:35] LABS: Hemoglobin 9.2 g/dL (12.9-16.9)
--- NOTE | 2019-02-10 14:18 | Discharge Summary ---
<Keaton Henderson - Last Filed: 02/10/19 14:16> - NOTES TO OUTPATIENT PROVIDER Notes to Outpatient Provider: Admitted for lower GI bleed. Required 4 units of red blood cell transfusion, hemoglobin 9.2 and stable on discharge. Will also be discharged on vitamin B12 and iron supplementation, Carafate, pantoprazole 40mg twice a day. We will discontinue aspirin on discharge. Date of Encounter: 02/10/19 Time of Encounter: 09:00 - Discharge Diagnosis (1) Acute blood loss anemia Priority: Primary Status: Resolved (2) Lower gastrointestinal hemorrhage Priority: Secondary Status: Resolved (3) Parkinsons disease Priority: Secondary Status: Chronic (4) Hypertension Priority: Secondary Status: Chronic Qualifiers: Hypertension type: essential hypertension Qualified Code(s): I10 - Essential (primary) hypertension (5) Mechanical deep vein thrombosis (DVT) prophylaxis in place Priority: Secondary Status: Acute (6) Iron deficiency anemia Priority: Secondary Status: Acute Qualifiers: Iron deficiency anemia type: chronic blood loss Qualified Code(s): D50.0 - Iron deficiency anemia secondary to blood loss (chronic) (7) Vitamin B12 deficiency Priority: Secondary Status: Chronic (8) Gastric ulcer Priority: Secondary Status: Acute Qualifiers: Gastric ulcer chronicity: unspecified ulcer chronicity Gastric ulcer complication status: without hemorrhage or perforation Qualified Code(s): K25.9 - Gastric ulcer, unspecified as acute or chronic, without hemorrhage or perforation Hospital course: Mr. Jauregui is a 78 year old male presented with chief complaint of hematochezia. Patient was evaluated for GI bleed at [facility] in the past 2 weeks. Since admission to this facility's he has continued to have small amount of blood in his stool. Patient presented from [facility] and had a large volume bright red bloody bowel movement. He is on aspirin at home. In the emergency department patient had large volume hematochezia as well and became intermittently hypotensive. He received a total of 4 units of packed red blood cells during this stay. Abdominal CT showed distended rectum, without any acute changes. He underwent EGD which showed small hiatal hernia, nonbleeding gastric ulcer, gastric mucosal atrophy. He was recommended to start Carafate and continue PPI. Colonoscopy showed diverticulosis in the sigmoid colon and descending colon, blood in the left side: The to transverse colon, internal hemorrhoids. Patient's hemoglobin has remained stable at 9.2. He is also hemodynamically stable. He is tolerating his diet and will be discharged to [facility]. Discharge discussed with: patient - Time Spent with Patient Total time spent providing and/or coordinating discharge services: - Discharge Medications Prescriptions: New Sucralfate [Carafate] 1 gm PO QIDAC #120 tablet Cyanocobalamin (Vitamin B-12) [Vitamin B-12] 1,000 mcg SL DAILY #30 tab.subl Aspirin Enteric Coated [Aspirin EC] 81 mg PO DAILY tablet.dr Continue Bisacodyl [Dulcolax] 5 mg PO DAILY PRN PRN Reason: Constipation Docusate [Colace] 200 mg PO DAILY Carbidopa/Levodopa 25/100 [Sinemet 25/100] 2 each PO 5XD Gabapentin [Neurontin] 100 mg PO BID Polyethylene Glycol 3350 [MiraLAX] 17 gm PO HS Loratadine [Claritin] 10 mg PO DAILY PRN PRN Reason: Rhinorrhea Ferrous Sulfate [Iron] 325 mg PO DAILY Menthol [Biofreeze] 1 appl TP Q8H PRN PRN Reason: Pain Vitamin B Complex [Balanced B-50] 1 each PO DAILY Acetaminophen w/Cod 300-30 mg [Tylenol w/Codeine #3] 1 each PO Q6H PRN PRN Reason: Pain Acetaminophen [Tylenol] 650 mg PO BID Nystatin POWDER [Nystop] 1 appl TP BID Chlorhexidine Gluconate [Peridex] 15 ml MM BID Ascorbate Calcium [Vitamin C] 500 mg PO DAILY Ondansetron HCl [Zofran] 4 mg PO Q6H PRN PRN Reason: Nausea And Vomiting Changed Pantoprazole Sodium [Protonix] 40 mg PO BID #60 Discontinued Aspirin [Lo-Dose Aspirin EC] 81 mg PO DAILY Home Medications: Acetaminophen [Tylenol] 650 mg PO BID 02/06/19 [History] Acetaminophen w/Cod 300-30 mg [Tylenol w/Codeine #3] 1 each PO Q6H PRN 02/06/19 [History] Ascorbate Calcium [Vitamin C] 500 mg PO DAILY 02/06/19 [History] Bisacodyl [Dulcolax] 5 mg PO DAILY PRN 02/06/19 [History] Carbidopa/Levodopa 25/100 [Sinemet 25/100] 2 each PO 5XD 02/06/19 [History] Chlorhexidine Gluconate [Peridex] 15 ml MM BID 02/06/19 [History] Docusate [Colace] 200 mg PO DAILY 02/06/19 [History] Ferrous Sulfate [Iron] 325 mg PO DAILY 02/06/19 [History] Gabapentin [Neurontin] 100 mg PO BID 02/06/19 [History] Loratadine [Claritin] 10 mg PO DAILY PRN 02/06/19 [History] Menthol [Biofreeze] 1 appl TP Q8H PRN 02/06/19 [History] Nystatin POWDER [Nystop] 1 appl TP BID 02/06/19 [History] Ondansetron HCl [Zofran] 4 mg PO Q6H PRN 02/06/19 [History] Polyethylene Glycol 3350 [MiraLAX] 17 gm PO HS 02/06/19 [History] Vitamin B Complex [Balanced B-50] 1 each PO DAILY 02/06/19 [History] Aspirin Enteric Coated [Aspirin EC] 81 mg PO DAILY tablet. 02/10/19 [Rx] Cyanocobalamin (Vitamin B-12) [Vitamin B-12] 1,000 mcg SL DAILY #30 tab.subl 02/10/19 [Rx] Pantoprazole Sodium [Protonix] 40 mg PO BID #60 02/10/19 [Rx] Sucralfate [Carafate] 1 gm PO QIDAC #120 tablet 02/10/19 [Rx] Allergies/Adverse Reactions: Allergy/AdvReac Type Severity Reaction Status Date / Time tramadol AdvReac Difficulty Verified 02/06/19 07:57 Breathing Date of admission: 02/06/19 14:00 Primary care physician: Ludy Colmenares DO Consults: 02/06/19 12:19 Consult to Gastroenterology [CONS] Stat Consulting Provider: Gastroenterology Amelie Reason for Consult: acute GI bleed with anemia Time Notified: 12:20 Call Completed: Yes Discharging clinician: Keaton Henderson Anticipated date of discharge: 02/10/19 - Constitutional Vitals: Temp Pulse Resp BP Pulse Ox 98.4 F 69 18 129/79 92 02/10/19 10:49 02/10/19 10:49 02/10/19 10:49 02/10/19 10:49 02/10/19 10:49 Exam: General: pleasant, without distress Cardiovascualr: Regular rate and rhythm with no murmur, absent gallops or rubs, absent pedal edema, radial pulses 2 out of 4 Lungs: Clear to auscultation bilaterally, not in respiratory distress Abdomen: Soft nontender, nondistended positive bowel sounds, Skin: warm and dry, absent rash, absent open wounds and nodules MSK: absent clubbing, cyanosis, joints without swelling Neuro: Alert oriented 3, no focal deficits Psych: good insight and judgment, - Patient Status Disposition: Transfer SNF Condition: Undetermined Functional capacity at discharge: uses cane/walker - Discharge Instructions Follow Up With: Ludy Colmenares DO [Primary Care Provider] - (in 1 week) Additional Instructions: Patient may resume taking aspirin 81 mg daily in the next week if he does not have any further episodes of bleeding. - Diet and Activity Activity: increase activity as tolerated Diet: other (advanced soft diet) <Cliff Conti - Last Filed: 02/10/19 14:59> Date of Encounter: 02/10/19 Time of Encounter: 09:10 - Discharge Diagnosis (1) Acute blood loss anemia Status: Resolved (2) Lower gastrointestinal hemorrhage Status: Resolved (3) Parkinsons disease Status: Chronic (4) Hypertension Status: Chronic Qualifiers: Hypertension type: essential hypertension Qualified Code(s): I10 - Essential (primary) hypertension (5) Mechanical deep vein thrombosis (DVT) prophylaxis in place Status: Acute Hospital course: Mr. Jauregui is a 78 year old male - Time Spent with Patient Total time spent providing and/or coordinating discharge services: Time spent: Less than 30 minutes (10 min) Date of admission: 02/06/19 14:00 Primary care physician: Ludy Colmenares DO Consults: 02/06/19 12:19 Consult to Gastroenterology [CONS] Stat Consulting Provider: Gastroenterology Amelie Reason for Consult: acute GI bleed with anemia Time Notified: 12:20 Call Completed: Yes - Constitutional Vitals: Temp Pulse Resp BP Pulse Ox 98.4 F 69 18 129/79 92 02/10/19 10:49 02/10/19 10:49 02/10/19 10:49 02/10/19 10:49 02/10/19 10:49 - Attending Attestation I saw evaluated and examined this patient and my medical decision-making was reviewed with the Resident Physician, Keaton Henderson. I agree with the documented findings, disposition and treatment plan as described except to any changes set forth below. We independently had [id number] contact with the patient. Patient with history of hypertension and hyperlipidemia, gastroesophageal reflux disease, Parkinson's disease was hospitalized here with hematochezia. His initial hemoglobin was 6.2. He received 2 units of PRBC and then underwent EGD and colonoscopy which showed a nonbleeding gastric ulcer and internal hemorrho ids with no signs of active bleeding. Patient was continued to be monitored here and his CBC checked. His hemoglobin levels did go down to 6.6 again yesterday. As such she received 2 more units of PRBC. Since then his blood counts have remained stable. He has not had any further episodes of lower GI bleeding. At this time is stable to be discharged back to skilled rehabilitation. He will continue to take PPI. He does have iron deficiency and did receive intravenous iron infusions here. He will continue to take supplemental iron therapy. He also had vitamin B 12 deficiency and will be placed on supplements for this. On exam, patient is awake and alert. S1 and S2 are normal. Breath sounds are normal. Abdomen is soft nontender.
--- NOTE | 2019-02-10 14:30 | Physician Discharge Referral ---
<Keaton Henderson - Last Filed: 02/10/19 14:29> [facility] Referral Info Transfer To: [facility] Provider in Charge: Dr. Conti Provider in Charge after Transfer: PCP Institutional Level of Care: Skilled - Diagnosis (1) Acute blood loss anemia Priority: Primary Status: Resolved (2) Lower gastrointestinal hemorrhage Priority: Secondary Status: Resolved (3) Parkinsons disease Priority: Secondary Status: Chronic (4) Hypertension Priority: Secondary Status: Chronic (5) Mechanical deep vein thrombosis (DVT) prophylaxis in place Priority: Secondary Status: Acute (6) Iron deficiency anemia Priority: Secondary Status: Acute (7) Vitamin B12 deficiency Priority: Secondary Status: Chronic (8) Gastric ulcer Priority: Secondary Status: Acute - Transfer Medications Prescriptions: RX: Cyanocobalamin (Vitamin B-12) [Vitamin B-12] 1,000 mcg SL DAILY #30 tab.subl Sucralfate [Carafate] 1 gm PO QIDAC #120 tablet Home Medications: RX: Acetaminophen [Tylenol] 650 mg PO BID 02/06/19 [History] RX: Acetaminophen w/Cod 300-30 mg [Tylenol w/Codeine #3] 1 each PO Q6H PRN 02/06/19 [History] RX: Ascorbate Calcium [Vitamin C] 500 mg PO DAILY 02/06/19 [History] RX: Bisacodyl [Dulcolax] 5 mg PO DAILY PRN 02/06/19 [History] RX: Carbidopa/Levodopa 25/100 [Sinemet 25/100] 2 each PO 5XD 02/06/19 [History] RX: Chlorhexidine Gluconate [Peridex] 15 ml MM BID 02/06/19 [History] RX: Docusate [Colace] 200 mg PO DAILY 02/06/19 [History] RX: Ferrous Sulfate [Iron] 325 mg PO DAILY 02/06/19 [History] RX: Gabapentin [Neurontin] 100 mg PO BID 02/06/19 [History] RX: Loratadine [Claritin] 10 mg PO DAILY PRN 02/06/19 [History] RX: Menthol [Biofreeze] 1 appl TP Q8H PRN 02/06/19 [History] RX: Nystatin POWDER [Nystop] 1 appl TP BID 02/06/19 [History] RX: Ondansetron HCl [Zofran] 4 mg PO Q6H PRN 02/06/19 [History] RX: Polyethylene Glycol 3350 [MiraLAX] 17 gm PO HS 02/06/19 [History] RX: Vitamin B Complex [Balanced B-50] 1 each PO DAILY 02/06/19 [History] RX: Aspirin Enteric Coated [Aspirin EC] 81 mg PO DAILY tablet. 02/10/19 [Rx] RX: Cyanocobalamin (Vitamin B-12) [Vitamin B-12] 1,000 mcg SL DAILY #30 tab.subl 02/10/19 [Rx] RX: Pantoprazole Sodium [Protonix] 40 mg PO BID #60 02/10/19 [Rx] Sucralfate [Carafate] 1 gm PO QIDAC #120 tablet 02/10/19 [Rx] Allergies/Adverse Reactions: Allergy/AdvReac Type Severity Reaction Status Date / Time tramadol AdvReac Difficulty Verified 02/06/19 07:57 Breathing - Respiratory Orders None Smoking Cessation: Smoking cessation has been advised. For more information, call the [employer] Line at [phone]-WIQU-NOW. - Advance Directives Code Status: DNR-Arrest/Don't Intubate - Mobility Orders Ambulate (with walker) - Rehabiliation Orders Rehab Potential: Good - Treatments Skin tear care topically daily PRN per policy - Diet Orders Mechanical Soft CERTIFICATION: I certify that the transfer of the above named patient to an Extended Care Facility is necessary for the continuing treatment of the diagnosis listed. The above information is true and accurate reflection of patient's current condition. Confidential - Redisclosure prohibited without a patient's written consent. <Cliff Conti - Last Filed: 02/10/19 15:00> - Diagnosis (1) Acute blood loss anemia Status: Resolved (2) Lower gastrointestinal hemorrhage Status: Resolved (3) Parkinsons disease Status: Chronic (4) Hypertension Status: Chronic (5) Mechanical deep vein thrombosis (DVT) prophylaxis in place Status: Acute - Respiratory Orders Smoking Cessation: Smoking cessation has been advised. For more information, call the [employer] Line at [phone]-NOW. - Treatments List/Other: Patient will resume taking aspirin 81 mg daily in 1 week if he does not have any further episodes of bleeding. CERTIFICATION: I certify that the transfer of the above named patient to an Extended Care Facility is necessary for the continuing treatment of the diagnosis listed. The above information is true and accurate reflection of patient's current condition. Confidential - Redisclosure prohibited without a patient's written consent.
== END 2019-02-10 17:25 | DRG 378 ==
LOC: EMEROOARM 07:52 → ICNU 14:00 → SUATTDRO 14:00 → ICNU 14:59 → 3ANU 02-07 19:29
PROVIDERS: ADMIT Internal Medicine Pulmonary Disease; ATTEND Internal Medicine